=== PATIENT | male | born 1965 | race Two or more races ===

== ENCOUNTER 2018-06-01 12:53 | Emergency (ER) | payer OTHER ==
[2018-06-01 13:05] VITALS: BP 154/99
--- NOTE | 2018-06-01 13:43 | EDPHY ---
H & P Stated Complaint: penile blisters x4 days. urinating normal .lbp x 4 days. Time Seen by Provider: 06/01/18 13:08 HPI/ROS: Chief Complaint: Lesion on penis HPI: 53-year-old male presenting with as a blister lesion on his penis for the last several days. Patient states that he had protected intercourse using a condom with a new contact week ago. He has also since had intercourse with his . Denies any discharge from his urethra. No history of STI in the past. No fevers or chills. The lesion is not painful. Has not had any discharge. No rash her redness. No other medical history. ROS: 10 systems were reviewed and were negative except those elements noted in the HPI. PMH: Denies Social History: No smoking, occasional alcohol Family History: non-contributory Physical Exam: General: Awake, alert, no acute distress Abdomen: Soft, nontender, no lesions Genital: Patient has several bullae on the left side of his penile shaft just proximal to the glans. There is no erythema. These are underneath the foreskin. He is an uncircumcised male. There is nor foreskin swelling. There is no discharge. There is no redness. He has no other lesions. Knee is nontender. There is no skin induration or thickening. No chancre. No inguinal lymphadenopathy or lesions. No scrotal swelling. Skin: No rash - Personal History Current Tetanus Diphtheria and Acellular Pertussis (TDAP): Yes Tetanus Vaccine Date: 2009 - Medical/Surgical History Hx Asthma: No Hx Chronic Respiratory Disease: No Hx Diabetes: No Hx Cardiac Disease: No Hx Renal Disease: No Hx Cirrhosis: No Hx Alcoholism: No Hx HIV/AIDS: No Hx Splenectomy or Spleen Trauma: No Other PMH: left elbow surgery - Social History Smoking Status: Never smoked Constitutional: Initial Vital Signs Temperature (C) 36.6 C 06/01/18 13:03 Heart Rate 98 06/01/18 13:03 Respiratory Rate 16 06/01/18 13:03 Blood Pressure 154/99 H 06/01/18 13:03 O2 Sat (%) 97 06/01/18 13:03 O2 Delivery Mode Room Air Allergies/Adverse Reactions: No Known Allergies Allergy (Verified 06/01/18 13:05) Medical Decision Making ED Course/Re-evaluation: 53-year-old male with penile lesion which are nontender blisters. I have obtained a viral swab. We have sent dirty urine for GC and Chlamydia. I have also ordered a syphilis antibody test. Given his lack of discharge and other symptoms these could be simply blistering from vigorous intercourse. Plan will be to hold off until diagnostic tests are performed. The patient knows to call back here in 24-48 hours to get those results and get further instructions on treatment recommendations. He will abstain from sexual relations until his tests are back and his lesion has healed. Departure - Departure Disposition: Home, Routine, Self-Care Clinical Impression: Penile lesion Condition: Good Instructions: Safe Sex (ED) Additional Instructions: Call the hospital in 24-48 hours to obtain your test results. You will then receive further instructions for any further treatment if necessary. Do not engage in any sexual activity until your test results are negative and your blisters have healed. Referrals: Taniya Mary MD [Primary Care Provider] - As per Instructions
[2018-06-03 11:18] LABS: GC AMPLIFICATION GENPROBE NEGATIVE (NEGATIVE)
== END 2018-06-01 13:45 | disposition home or self-care (01) ==
LOC: CED 12:53
DX: N48.29 Other inflammatory disorders of penis (principal)
CPT/HCPCS: 87529-90